=== PATIENT | male | born 1965 | race Two or more races ===

== ENCOUNTER 2025-06-12 16:43 | Emergency (ER) | payer MEDICAID, SELFPAY ==
[2025-06-12 16:44] VITALS: BMI 26.6
[2025-06-12 16:53] VITALS: BP 168/88; BP 179/89; PULSE 67; RESP 18; TEMP 36.7; O2SAT 96
--- NOTE | 2025-06-12 16:57 | EKG_ITS ---
[facility] Test Date: 2025-06-12 Pat Name: IVY BULL Department: Room: - Gender: Male Afterschool: : 1965 Requested By: Chuck Alberts Order Number: [id number] Reading MD: Chuck Alberts Measurements Intervals Parker Rate: 73 P: 55 ME: 138 QRS: 14 QRSD: 99 T: 66 QT: 397 QTc: 439 Interpretive Statements SINUS RHYTHM INDETERMINATE AXIS No previous ECG available for comparison /store/S0/[id number]
--- NOTE | 2025-06-12 16:58 | EDRME_ITS ---
Rapid Medical Screening Exam FORMERLY [facility], [facility]–1983 Arrival date/time: 06/12/25 16:43 59-year-old male with no known medical history presents to the emergency room with a chief complaint of dizziness and lightheadedness x 2 days. Patient states his dizziness is worse with certain positional changes. I have greeted and performed a focused initial assessment of this patient. A comprehensive ED assessment and evaluation of the patient, analysis of all test results, and completion of the medical decision making process will be conducted by additional ED providers. Chief Complaint: Dizziness Vital signs: Vital Signs Temperature 98.0 F 06/12/25 16:53 Pulse Rate 67 06/12/25 16:53 Respiratory Rate 18 06/12/25 16:53 Blood Pressure 168/88 H 06/12/25 16:53 Pulse Oximetry (%) 96 06/12/25 16:53 Oxygen Delivery Method Room Air 06/12/25 16:53 Vital signs reviewed by provider: Yes Exam: Patient is a GCS of 15 alert and oriented x 3 pupils are PERRLA EOMs are intact the patient has no focal deficits Lung sounds are clear bilaterally patient has a strong and regular rhythm S1 and S2 noted Clinical Impression: Vertigo/chest pain/NSTEMI/electrolyte imbalance/orthostatic hypotension
[2025-06-12] MEDS: MECLIZINE HCL 25 MG TABLET 50 MG PO (17:09)
[2025-06-12 17:45] LABS: Basophils # (Auto) 0.0 Thou/mm3 (0.0-0.2); Basophils % (Auto) 0 % (0-2.5); Eosinophils # (Auto) 0.2 Thou/mm3 (0.0-0.5); Eosinophils % (Auto) 2 % (0-10); Hematocrit 45.5 % (41.0-53.0); Hemoglobin 15.8 g/dL (13.5-16.0); Immature Granulocytes Auto 0.01 Thou/mm3 (0.00-0.00); Lymphocytes # (Auto) 3.1 Thou/mm3 (1.0-4.8); Lymphocytes % (Auto) 36 % (10-50); Mean Corpuscular HGB Conc 34.7 g/dl (31.0-37.0); Mean Corpuscular Hemoglobin 30.5 pg (25.0-35.0); Mean Corpuscular Volume 88 fL (80-100); Monocytes # (Auto) 0.6 Thou/mm3 (0.0-0.8); Monocytes % (Auto) 7 % (0-12); Neutrophils # (Auto) 4.8 Thou/mm3 (1.8-7.7); Neutrophils % (Auto) 55 % (37-80); Nucleated Red Blood Cell # 0.00 Thou/mm3 (0.00-0.00); Nucleated Red Blood Cell % 0 /100 WBC (0); Platelet Count 189 Thou/mm3 (140-440); RDW Standard Deviation 41.4 fL (35.1-43.9); Red Blood Count 5.18 Miln/mm3 (4.50-5.90); White Blood Count 8.8 Thou/mm3 (3.8-10.6)
[2025-06-12 17:51] LABS: Collection Type, Urine Clean Catch; Squamous Epithelial Cell,Urine 0 /hpf (0-5)
[2025-06-12 18:00] LABS: B-Type Natriuretic Peptide 24 pg/mL (0-100)
[2025-06-12 18:03] LABS: Bilirubin,Urine Negative (Negative); Blood,Urine Negative (Negative); Clarity,Urine Clear (Clear/Hazy); Color,Urine Yellow (Lt Yel-Yel); Glucose, Urine Negative (Negative); Ketones,Urine Trace (Negative); Leukocyte Esterase,Urine Negative (Negative); Nitrite,Urine Negative (Negative); PH,Urine 6.0 (5.0-7.0); Protein,Urine Negative (Neg - Trace); RBC,Urine 1 /hpf (0-3); Specific Gravity,Urine 1.023 (1.001-1.035); Urobilinogen,Urine Negative mg/dL (0.0-1.0); WBC,Urine 1 /hpf (0-5)
[2025-06-12 18:04] LABS: Alanine Aminotransferase 18 U/L (10-49); Albumin, Serum 5.0 gm/dL (3.4-4.8); Albumin/Globulin Ratio 2.2 (1.2-2.2); Alkaline Phosphatase 61 U/L (46-116); Anion Gap 11 (7-16); Aspartate Amino Transferase 21 U/L (0-34); BUN/Creatinine Ratio 9 Ratio (12-20); Bilirubin,Total 0.6 mg/dL (0.3-1.2); Blood Urea Nitrogen 8 mg/dL (9-23); Calcium 9.6 mg/dL (8.3-10.6); Calcium (Corrected) 9.6 mg/dL (8.5-10.1); Carbon Dioxide 23.9 mMol/L (20.0-31.0); Chloride 106 mMol/L (98-107); Creatinine (Component) 0.9 mg/dL (0.6-1.3); Estimated Creatinine Clearance 81.6 mL/min (>60); Globulin 2.3 gm/dL (2.3-3.5); Glucose 117 mg/dL (74-106); Osmolality,Calculated 280 (275-295); Potassium 4.0 mMol/L (3.4-5.1); Sodium 141 mMol/L (136-145); Total Protein 7.3 gm/dL (5.7-8.2); Troponin I < 0.020 ng/mL (0.0-0.045); eGFR > 60 See Note
[2025-06-12 21:04] VITALS: BP 171/90; PULSE 64; RESP 16; TEMP 37.1; O2SAT 96
--- NOTE | 2025-06-12 21:19 | PD.EDADULT ---
ED General RME/HPI General Chief complaint: Dizziness Stated complaint: DIZZY FOR 1 MONTH, WORSE WITH MOVING Time Seen by Provider: 06/12/25 19:30 Arrival date/time: 06/12/25 16:43 CC: Dizziness lightheadedness HPI onset several months ago but the worst episode started 4 days ago intermittent in nature sometimes the patient states the room is spinning and he is almost loses balance but denies any falls. Patient is awake alert oriented to get significant improvement from the medicine that was giving him front patient has no other complaints at this time. RME / HPI RME / HPI narrative: 06/12/25 16:43 59-year-old male with no known medical history presents to the emergency room with a chief complaint of dizziness and lightheadedness x 2 days. Patient states his dizziness is worse with certain positional changes. I have greeted and performed a focused initial assessment of this patient. A comprehensive ED assessment and evaluation of the patient, analysis of all test results, and completion of the medical decision making process will be conducted by additional ED providers. Exam: Patient is a GCS of 15 alert and oriented x 3 pupils are PERRLA EOMs are intact the patient has no focal deficits Lung sounds are clear bilaterally patient has a strong and regular rhythm S1 and S2 noted Impression: Vertigo/chest pain/NSTEMI/electrolyte imbalance/orthostatic hypotension Related Data Previous Rx's ?Medication ?Instructions ?Recorded meclizine 50 mg tablet 50 mg PO QDAY #14 tabs 06/12/25 Allergies Allergy/AdvReac Type Severity Reaction Status Date / Time No Known Allergies Allergy Verified 06/12/25 16:46 Review of Systems Review of Systems Narrative Review of Systems: GEN: No fever, no chills, no weight loss EYES: No discharge, no visual changes, no pain HEENT: No ear pain, no congestion, no sore throat PULM: No shortness of breath, no cough, no congestion CV: No chest pain, no dyspnea on exertion, no palpitations GI: No nausea, no vomiting, no diarrhea, no pain, no constipation : No frequency, no urgency, no dysuria MUSC/SKEL: No joint pain, no back pain SKIN: No rash PSYCH: No hallucinations, no depression HEME/LYMPH: No easy bleeding or bruising tendencies NEURO: No weakness, no headache Past Medical History Social History SMOKING STATUS: Current every day smoker ED Exam Narrative Physical exam: [General: Not in any acute distress Head normocephalic HEENT: Eyes pupils are PERRLA EOMs are intact no nystagmus, all other subsystems of HEENT are within acceptable limits Neck is supple nontender Chest equal chest rise nontender to palpation Respiratory: Clear to auscultation no wheezes crackles or rubs CV: Rate rhythm is regular no murmurs rubs or clicks Abdomen is soft nontender no masses positive bowel sounds all 4 quadrants Back: No CVA tenderness no spinous process tenderness from cervical spine thoracic and lumbar spine Skin: Intact no petechiae rash induration ulceration or crepitus Extremities: Moving all extremity against resistance cap refill less than 2 seconds neurosensory intact Neuro: Awake alert oriented x3 Glascow coma 15 no focal deficits] Course Quality Measures none Orders Category Date Time Status EKG (ED ONLY) *Do not use* NOW Care 06/12/25 16:57 Completed EKG (ED Only) Stat Exams 06/12/25 16:57 Draft BNP [B-Type Natriuretic Peptide] Stat Lab 06/12/25 17:20 Completed CBC Stat Lab 06/12/25 17:20 Completed Comprehensive Metabolic Panel Stat Lab 06/12/25 17:20 Completed Troponin I Stat Lab 06/12/25 17:20 Completed Urinalysis Stat Lab 06/12/25 17:25 Completed Urine Culture Stat Lab 06/12/25 17:25 Received Meclizine HCl [Antivert] Med 06/12/25 16:57 Discontinued 50 mg PO X1 ONE Vital Signs Vital signs: Vital Signs Temperature 98.0 F 06/12/25 16:53 Pulse Rate 67 06/12/25 16:53 Respiratory Rate 18 06/12/25 16:53 Blood Pressure 168/88 H 06/12/25 16:53 Pulse Oximetry (%) 96 06/12/25 16:53 Oxygen Delivery Method Room Air 06/12/25 16:53 Discharge Plan Plan Patient Disposition: HOME (Self Care) Patient condition on transfer: Stable Prescriptions/Referrals Prescriptions/Med Rec: New meclizine 50 mg tablet 50 mg PO QDAY Qty: 14 0RF Referrals: Navneet Akhtar MD [Physician, Family Practice] - In 1 week No Primary/Family,Physician [Primary Care Provider] - In 1 week Problem List Clinical Impression: Benign paroxysmal positional vertigo Patient/Caregiver Discharge Instructions Other Activity Instructions:: Take the medication as needed if the dizziness worsens in spite of the medications return the emergency room for reevaluation. Education Materials: ED Vertigo, Unspecified Print Language: Italian Stand Alone Forms: Kami Award Info., Patient Portal Info Letter, Work/School Release PA/CARD SETTER Supervising Physician PA/CARD SETTER Supervising Physician: Richar Mullins ENP MDM Clinical Information Provided by: patient Medical Records reviewed [facility] Meds/Rx considered, not ordered None Labs/Rad/Tests considered, not ordered None Chronic Illness/Social Conditions which may negatively complicate care or outcome(s)-explain: None or not applicable EKG Interpretation EKG #1: EKG Interpretation: EKG performed at 1702 shows rate of 73 NE interval 138 QRS at 99 QTc of 439 this normal sinus rhythm. Labs Labs: interpreted by id Lab(s) Interpretation(s): CBC shows no acute leukocytosis anemia thrombocytopenia CMP shows a glucose of 117 no other electrolyte imbalances renal impairment transaminitis or T. bili elevation Urine is negative for urinary tract infection. Imaging Imaging interpretation: none Medication Administration(s) none Medication Administration History Discontinued Medications Meclizine HCl (Meclizine Hcl 25 Mg Tablet) 50 mg PO X1 ONE Stop: 06/12/25 16:58 Last Admin: 06/12/25 17:09 Dose: 50 mg Documented By: THONY Diagnosis Differential Diagnosis ED Complaint MDM: Benign positional vertigo M?ni?re's syndrome somatizations
== END 2025-06-12 21:40 | disposition home or self-care (01) ==
PROVIDERS: Nurse Practitioner Family; Emergency Provider Emergency Medicine
DX: H81.10 Benign paroxysmal vertigo, unspecified ear (principal)
CPT/HCPCS: 36415; 80053; 81001; 83880; 84484; 85025; 87086; 93005; 99283; A9270

== ENCOUNTER 2025-06-15 10:39 | Emergency (ER) | payer MEDICAID, SELFPAY ==
[2025-06-15 11:04] VITALS: BP 149/93; PULSE 71; RESP 18; TEMP 36.9; O2SAT 97
--- NOTE | 2025-06-15 11:09 | XR_ITS ---
Examination: CT brain head without contrast. 2-D sagittal coronal reconstructions Date and time of exam: June 15, 2025, 1154 hours INDICATION: Generalized head pain and severe dizziness onset today CTDI: vol (mGy): 49.4 DLP: (mGycm): 916 Technique: Multiple CT axial sections of the brain have been obtained, 5 mm slice thickness. Contrast has not been administered. 2-D sagittal, coronal reconstructions have been obtained Low dose protocols were performed. One or more of the following dose reduction techniques were used; automated exposure control, adjustment of the mA and/or KV according to patient size, use of iterative reconstruction technique. Findings: No significant ventricular enlargement. Intra-axial or extra-axial hemorrhage density is not seen. No mass effect or midline shift Basal cisterns are not remarkable. Fourth ventricle is midline. Cranial vault intact. Impression: Negative for acute hemorrhage, mass effect or midline shift Advise clinical correlation and follow-up accordingly
--- NOTE | 2025-06-15 11:10 | PD.EDRME ---
Rapid Medical Screening Exam RME Arrival date/time: 06/15/25 10:39 59-year-old male presents to the emergency room today for complaints of headache and head pressure Chief Complaint: Headache Vital signs: Vital Signs Temperature 98.5 F 06/15/25 11:04 Pulse Rate 71 06/15/25 11:04 Respiratory Rate 18 06/15/25 11:04 Blood Pressure 149/93 H 06/15/25 11:04 Pulse Oximetry (%) 97 06/15/25 11:04 Oxygen Delivery Method Room Air 06/15/25 11:04 Vital signs reviewed by provider: Yes Exam: On exam patient well-appearing patient does not appear look toxic Neurological exam normal Clinical Impression: Lab work and imaging obtained
[2025-06-15 11:28] LABS: Basophils # (Auto) 0.0 Thou/mm3 (0.0-0.2); Basophils % (Auto) 1 % (0-2.5); Eosinophils # (Auto) 0.2 Thou/mm3 (0.0-0.5); Eosinophils % (Auto) 3 % (0-10); Hematocrit 44.8 % (41.0-53.0); Hemoglobin 15.7 g/dL (13.5-16.0); Immature Granulocytes Auto 0.02 Thou/mm3 (0.00-0.00); Lymphocytes # (Auto) 2.2 Thou/mm3 (1.0-4.8); Lymphocytes % (Auto) 35 % (10-50); Mean Corpuscular HGB Conc 35.0 g/dl (31.0-37.0); Mean Corpuscular Hemoglobin 30.7 pg (25.0-35.0); Mean Corpuscular Volume 88 fL (80-100); Monocytes # (Auto) 0.5 Thou/mm3 (0.0-0.8); Monocytes % (Auto) 8 % (0-12); Neutrophils # (Auto) 3.2 Thou/mm3 (1.8-7.7); Neutrophils % (Auto) 53 % (37-80); Nucleated Red Blood Cell # 0.00 Thou/mm3 (0.00-0.00); Nucleated Red Blood Cell % 0 /100 WBC (0); Platelet Count 169 Thou/mm3 (140-440); RDW Standard Deviation 41.8 fL (35.1-43.9); Red Blood Count 5.11 Miln/mm3 (4.50-5.90); White Blood Count 6.1 Thou/mm3 (3.8-10.6)
[2025-06-15 11:51] LABS: Alanine Aminotransferase 17 U/L (10-49); Albumin, Serum 4.8 gm/dL (3.4-4.8); Albumin/Globulin Ratio 2.0 (1.2-2.2); Alkaline Phosphatase 61 U/L (46-116); Anion Gap 10 (7-16); Aspartate Amino Transferase 20 U/L (0-34); BUN/Creatinine Ratio 9 Ratio (12-20); Bilirubin,Total 0.6 mg/dL (0.3-1.2); Blood Urea Nitrogen 9 mg/dL (9-23); Calcium 9.4 mg/dL (8.3-10.6); Calcium (Corrected) 9.4 mg/dL (8.5-10.1); Carbon Dioxide 26.5 mMol/L (20.0-31.0); Chloride 106 mMol/L (98-107); Creatinine (Component) 1.0 mg/dL (0.6-1.3); Globulin 2.4 gm/dL (2.3-3.5); Glucose 117 mg/dL (74-106); Osmolality,Calculated 282 (275-295); Potassium 4.0 mMol/L (3.4-5.1); Sodium 142 mMol/L (136-145); Total Protein 7.2 gm/dL (5.7-8.2); eGFR > 60 See Note
--- NOTE | 2025-06-15 12:56 | EDNOTE_ITS ---
ED Headache RME/HPI General Chief Complaint: Headache Stated Complaint: PRESSURE IN HEAD Time Seen by Provider: 06/15/25 11:29 Arrival date/time: 59-year-old male patient was brought in by family for evaluation regarding dizziness. And vertigo onset of symptoms for the last 1 month has on and off dizziness and vertigo, worse with sudden positional change severity mild. Patient also complained of posterior headache that comes and goes severity mild. Patient denies any trauma denies any fall denies any neck pain denies any fever. Patient is ambulatory. Was seen here last few days ago and was prescribed meclizine which according to the patient is not really working. RME / HPI RME / HPI Narrative: 06/15/25 10:39 59-year-old male presents to the emergency room today for complaints of headache and head pressure Exam: On exam patient well-appearing patient does not appear look toxic Neurological exam normal Impression: Lab work and imaging obtained Related Data Previous Rx's ?Medication ?Instructions ?Recorded meclizine 50 mg tablet 50 mg PO QDAY #14 tabs 06/12 scopolamine base 1 mg over 3 days 1 mg topical .q3day #10 ea 06/15/25 transdermal patch Allergies Allergy/AdvReac Type Severity Reaction Status Date / Time No Known Allergies Allergy Verified 06/15/25 10:42 Review of Systems Review of Systems Narrative Review of Systems: Review of system reviewed and within normal limits except mentioned in HPI ED Exam Narrative Physical exam: VITAL SIGNS: Reviewed. GENERAL APPEARANCE: Alert and interactive, follows commands, no acute distress, HEAD AND FACE: Non-traumatic. ENT: PERRL, pink conjunctivitis, eyelid no trauma, Mucous membrane moist., No nystagmus noted NECK: Supple, nontender, no nuchal rigidity. CHEST: No tenderness, no crepitus, no paradoxical movement, no retractions. LUNGS: Clear, well ventilated, symmetric, no rales, no wheezing, no ronchi, no stridor, good breath sounds bilaterally. HEART: Regular rate, regular rhythm, no murmur, no gallops. ABDOMEN: Soft, positive bowel sounds, nondistended, no guarding, nontender, no rebound, no masses, RECTAL: Deferred. GENITAL: Deferred. NEUROLOGICAL: Gross motor function intact sensory function intact, Appropriate for age. Negative Romberg's test MUSCULOSKELETAL: low back nontender, full range of motion. EXTREMITIES: Nontender, full range of motion. SKIN: Color pink, dry, no rash, no lacerations, no abrasions, no contusions. LYMPHATICS: Deferred. Course Quality Measures none Orders Category Date Time Status CT head/brain wo con Stat Exams 06/15/25 11:09 Completed CBC Stat Lab 06/15/25 11:14 Completed CMP [Comprehensive Metabolic Panel] Stat Lab 06/15/25 11:14 Completed Acetaminophen Tab [Tylenol ES Tab] Med 06/15/25 12:42 Discontinued 1,000 mg PO X1 ONE Meclizine HCl [Antivert] Med 06/15/25 12:42 Discontinued 50 mg PO X1 ONE Vital Signs Vital signs: Vital Signs Temperature 98.5 F 06/15/25 11:04 Pulse Rate 71 06/15/25 11:04 Respiratory Rate 18 06/15/25 11:04 Blood Pressure 149/93 H 06/15/25 11:04 Pulse Oximetry (%) 97 06/15/25 11:04 Oxygen Delivery Method Room Air 06/15/25 11:04 Headache MDM Narrative MDM Narrative:: 59-year-old male patient was brought in by family for evaluation regarding dizziness. And vertigo onset of symptoms for the last 1 month has on and off dizziness and vertigo, worse with sudden positional change severity mild. Patient also complained of posterior headache that comes and goes severity mild. Patient denies any trauma denies any fall denies any neck pain denies any fever. Patient is ambulatory. Was seen here last few days ago and was prescribed meclizine which according to the patient is not really working. CBC CMP all came back unremarkable. CT scan of the head also came back unremarkable. On reevaluation patient is ambulatory in a straight line, and he told me that there was no recurrence of dizziness in the emergency room. Prior to discharge he is not having any dizziness. Patient was advised to follow-up with PCP and for referral to a neurologist for persistent intermittent dizziness. Patient stable for discharge home since he is not having any dizziness and patient's ambulatory prior to discharge. Patient probably needs outpatient MRI. Patient appears nontoxic and hemodynamically stable .Decision to discharge the patient. The patient/family was given an opportunity to ask questions and understood their discharge instructions. Discharge instructions specifically included follow up provider and time frame, current and/or new medications and possible side effects, indications for sooner follow up or return to the emergency department, and the expected course of current diagnosis. Patient reports feeling better as well and giving evidence of significant clinical improvement, I believe patient is now a candidate for discharge. Patient data External records reviewed:: None Clinical information provided by:: patient and family Social determinants that could affect healthcare access:: none Patient has the following chronic illnesses:: None How is presenting disease/condition affected by chronic disease/condition?: no chronic disease Evaluation data The following diagnostics were reviewed and interpreted by me:: lab results and radiology exam(s) Lab and/or radiology exams considered but not ordered:: None Interpretation Summary: See results MDM Medications / Prescriptions Medications or Prescriptions considered but not ordered:: None Medication administrations:: Medication Administration History Discontinued Medications Acetaminophen (Acetaminophen 500 Mg Tablet) 1,000 mg PO X1 ONE Stop: 06/15/25 12:43 Meclizine HCl (Meclizine Hcl 25 Mg Tablet) 50 mg PO X1 ONE Stop: 06/15/25 12:43 None Consultations Consultation(s) initiated? (list below): No Diagnosis Differential diagnosis headache: tension headache and other (Paroxysmal benign vertigo) Most likely diagnosis given after review of the tests above:: Dizziness Admission Indicated Admission indicated?: not indicated Admission Request Was there a request for admission?: No Disposition Plan Disposition Plan: Discharge Discharge Attestation Discharge Attestation: The patient and all family members were given an opportunity to ask questions and understood the discharge instructions. Discharge instructions specifically effects, indications for sooner follow up or return to the emergency department, and the expected course of current diagnosis. Patient condition: Stable Discharge Plan Plan Patient Disposition: HOME (Self Care) Discharge Disposition comment: Stable Prescriptions/Referrals Prescriptions/Med Rec: New scopolamine base 1 mg over 3 days patch 3 day 1 mg topical .q3day Qty: 10 0RF No Action meclizine 50 mg tablet 50 mg PO QDAY Qty: 14 0RF Referrals: No Primary/Family,Physician [Primary Care Provider] - In 1 week Problem List Clinical Impression: Dizziness Patient/Caregiver Discharge Instructions Discharge Activity: activity as tolerated Education Materials: Vertigo Medicine Tx Additional Instructions: Thank you for the opportunity for serving you today. You are stable for discharged . You are advised to: Follow-up with your PCP in 1 to 2 days and as per referral to neurologist Return to ED for worsening of symptoms Increase oral fluids Take medication as prescribed Print Language: English Stand Alone Forms: Kami Award Info., Patient Portal Info Letter PA/BUNDLING MACHINE OPERATOR Supervising Physician PA/BUNDLING MACHINE OPERATOR Supervising Physician: MD Sheeba
== END 2025-06-15 13:13 | disposition home or self-care (01) ==
PROVIDERS: Nurse Practitioner Primary Care; Emergency Provider Emergency Medicine
DX: R42 Dizziness and giddiness (principal)
CPT/HCPCS: 36415; 70450; 80053; 85025; 99283

== ENCOUNTER 2025-06-25 06:48 | Emergency (ER) | payer MEDICAID, SELFPAY ==
[2025-06-25 06:55] VITALS: BMI 64.0
[2025-06-25 07:36] VITALS: BP 145/80; PULSE 68; RESP 19; TEMP 36.8; O2SAT 97
--- NOTE | 2025-06-25 08:21 | XR_ITS ---
EXAMINATION: PA chest single view TECHNIQUE: Upright PA chest single view Date and time: June 25, 2025, 0918 hours INDICATIONS: Severe headache and dizziness beginning 2 months ago. FINDINGS: Normal heart size Mild accentuation basilar bronchovascular markings No lobar pneumonia or pulmonary edema The Gerald structures are intact IMPRESSION: Mild basilar bronchitis pattern
[2025-06-25] MEDS: MECLIZINE HCL 25 MG TABLET 50 MG PO (08:52)
--- NOTE | 2025-06-25 08:55 | EDRME_ITS ---
Rapid Medical Screening Exam E Arrival date/time: 06/25/25 06:48 This is a 59-year-old male that comes into the emergency room with complaints of dizziness. Patient has already been seen by his primary doctor for this problem. Patient reports that he recently was told that he had a murmur and he is currently being referred to a boiler operator. Patient states he was initially taking medications to help with his dizziness but he really does not think it was actually working. Patient was actually seen in the emergency room actually at patient states that he had a workup done there. Patient states he even had a CT of his head done. Patient was told that everything looked good that his heart was doing good and that he needs to follow-up with his primary doctor. Family is concerned because he still having dizziness episodes. They are more concerned because they want his murmur to be further investigated. Patient denies chest pain shortness of breath however did state that he had chest pain the day he went to the emergency room at [facility]. Patient states the dizziness is worse when he bends down. Patient does have a history of high blood pressure. Patient reports that he was recently told that he had increased his lisinopril dose to 40 mg versus 20 mg. I have greeted and performed a focused initial assessment of this patient. Initial appropriate labs ordered at this time. A comprehensive ED assessment and evaluation of the patient and analysis of all test and completion of medical decision making process will be conducted by additional ED provider. Chief Complaint: General Adult/Misc Complain Time Seen by Provider: 06/25/25 07:27 Vital signs: Vital Signs Temperature 98.3 F 06/25/25 07:36 Pulse Rate 68 06/25/25 07:36 Respiratory Rate 19 06/25/25 07:36 Blood Pressure 145/80 H 06/25/25 07:36 Pulse Oximetry (%) 97 06/25/25 07:36 Oxygen Delivery Method Room Air 06/25/25 07:36 Exam: Alert and oriented, breathing even and unlabored Clinical Impression: Dizziness
[2025-06-25 09:17] LABS: Collection Type, Urine Voided; Squamous Epithelial Cell,Urine 0 /hpf (0-5)
[2025-06-25 09:28] LABS: Basophils # (Auto) 0.0 Thou/mm3 (0.0-0.2); Basophils % (Auto) 1 % (0-2.5); Eosinophils # (Auto) 0.1 Thou/mm3 (0.0-0.5); Eosinophils % (Auto) 1 % (0-10); Hematocrit 41.4 % (41.0-53.0); Hemoglobin 14.4 g/dL (13.5-16.0); Immature Granulocytes Auto 0.01 Thou/mm3 (0.00-0.00); Lymphocytes # (Auto) 1.3 Thou/mm3 (1.0-4.8); Lymphocytes % (Auto) 24 % (10-50); Mean Corpuscular HGB Conc 34.8 g/dl (31.0-37.0); Mean Corpuscular Hemoglobin 30.5 pg (25.0-35.0); Mean Corpuscular Volume 88 fL (80-100); Monocytes # (Auto) 0.4 Thou/mm3 (0.0-0.8); Monocytes % (Auto) 8 % (0-12); Neutrophils # (Auto) 3.6 Thou/mm3 (1.8-7.7); Neutrophils % (Auto) 66 % (37-80); Nucleated Red Blood Cell # 0.00 Thou/mm3 (0.00-0.00); Nucleated Red Blood Cell % 0 /100 WBC (0); Platelet Count 122 Thou/mm3 (140-440); RDW Standard Deviation 41.1 fL (35.1-43.9); Red Blood Count 4.72 Miln/mm3 (4.50-5.90); White Blood Count 5.5 Thou/mm3 (3.8-10.6)
[2025-06-25 09:31] LABS: Bilirubin,Urine Negative (Negative); Blood,Urine Negative (Negative); Clarity,Urine Clear (Clear/Hazy); Color,Urine Yellow (Lt Yel-Yel); Culture Indicated,Urine Not Indicated; Glucose, Urine Negative (Negative); Ketones,Urine Negative (Negative); Leukocyte Esterase,Urine Negative (Negative); Nitrite,Urine Negative (Negative); PH,Urine 5.5 (5.0-7.0); Protein,Urine Negative (Neg - Trace); RBC,Urine 1 /hpf (0-3); Specific Gravity,Urine 1.027 (1.001-1.035); Urobilinogen,Urine Negative mg/dL (0.0-1.0); WBC,Urine 1 /hpf (0-5)
[2025-06-25 09:33] LABS: Sperm,Urine Present
[2025-06-25 09:38] LABS: Amphetamine/Methamp Scrn,U Negative (Negative); Barbiturate Screen,Urine Negative (Negative); Benzodiazepines Screen,Urine Negative (Negative); Benzoylecgonine Screen, Ur Negative (Negative); Fentanyl Screen,Urine Negative (Negative); Opiate Screen,Urine Negative (Negative); THC Screen,Urine Negative (Negative)
[2025-06-25 09:44] LABS: Alanine Aminotransferase 14 U/L (10-49); Albumin, Serum 4.8 gm/dL (3.4-4.8); Albumin/Globulin Ratio 2.3 (1.2-2.2); Alkaline Phosphatase 53 U/L (46-116); Anion Gap 8 (7-16); Aspartate Amino Transferase 19 U/L (0-34); BUN/Creatinine Ratio 9 Ratio (12-20); Bilirubin,Total 0.5 mg/dL (0.3-1.2); Blood Urea Nitrogen 9 mg/dL (9-23); Calcium 9.6 mg/dL (8.3-10.6); Calcium (Corrected) 9.6 mg/dL (8.5-10.1); Carbon Dioxide 24.9 mMol/L (20.0-31.0); Chloride 108 mMol/L (98-107); Creatinine (Component) 1.0 mg/dL (0.6-1.3); Estimated Creatinine Clearance 122.5 mL/min (>60); Globulin 2.1 gm/dL (2.3-3.5); Glucose 110 mg/dL (74-106); Osmolality,Calculated 280 (275-295); Potassium 4.4 mMol/L (3.4-5.1); Sodium 141 mMol/L (136-145); Total Protein 6.9 gm/dL (5.7-8.2); Troponin I < 0.002 ng/mL (0.0-0.045); eGFR > 60 See Note
[2025-06-25 10:00] LABS: B-Type Natriuretic Peptide < 20 pg/mL (0-100)
[2025-06-25 12:07] VITALS: BP 147/87; PULSE 66; RESP 16; TEMP 37.1; O2SAT 97
--- NOTE | 2025-06-25 12:18 | PD.EDRME ---
Rapid Medical Screening Exam RME Arrival date/time: 06/25/25 06:48 06/25/25 06:48 This is a 59-year-old male that comes into the emergency room with complaints of dizziness. Patient has already been seen by his primary doctor for this problem. Patient reports that he recently was told that he had a murmur and he is currently being referred to a zinc plate cutter. Patient states he was initially taking medications to help with his dizziness but he really does not think it was actually working. Patient was actually seen in the emergency room actually at patient states that he had a workup done there. Patient states he even had a CT of his head done. Patient was told that everything looked good that his heart was doing good and that he needs to follow-up with his primary doctor. Family is concerned because he still having dizziness episodes. They are more concerned because they want his murmur to be further investigated. Patient denies chest pain shortness of breath however did state that he had chest pain the day he went to the emergency room at [facility]. Patient states the dizziness is worse when he bends down. Patient does have a history of high blood pressure. Patient reports that he was recently told that he had increased his lisinopril dose to 40 mg versus 20 mg. I have greeted and performed a focused initial assessment of this patient. Initial appropriate labs ordered at this time. A comprehensive ED assessment and evaluation of the patient and analysis of all test and completion of medical decision making process will be conducted by additional ED provider. Chief Complaint: General Adult/Misc Complain Time Seen by Provider: 06/25/25 07:27 Vital signs: Vital Signs Temperature 98.3 F 06/25/25 07:36 Pulse Rate 68 06/25/25 07:36 Respiratory Rate 19 06/25/25 07:36 Blood Pressure 145/80 H 06/25/25 07:36 Pulse Oximetry (%) 97 06/25/25 07:36 Oxygen Delivery Method Room Air 06/25/25 07:36 RME Narrative: 06/25/25 06:48 This is a 59-year-old male that comes into the emergency room with complaints of dizziness. Patient has already been seen by his primary doctor for this problem. Patient reports that he recently was told that he had a murmur and he is currently being referred to a zinc plate cutter. Patient states he was initially taking medications to help with his dizziness but he really does not think it was actually working. Patient was actually seen in the emergency room actually at patient states that he had a workup done there. Patient states he even had a CT of his head done. Patient was told that everything looked good that his heart was doing good and that he needs to follow-up with his primary doctor. Family is concerned because he still having dizziness episodes. They are more concerned because they want his murmur to be further investigated. Patient denies chest pain shortness of breath however did state that he had chest pain the day he went to the emergency room at [facility]. Patient states the dizziness is worse when he bends down. Patient does have a history of high blood pressure. Patient reports that he was recently told that he had increased his lisinopril dose to 40 mg versus 20 mg. I have greeted and performed a focused initial assessment of this patient. Initial appropriate labs ordered at this time. A comprehensive ED assessment and evaluation of the patient and analysis of all test and completion of medical decision making process will be conducted by additional ED provider. Exam: Alert and oriented, breathing even and unlabored Clinical Impression: Dizziness
--- NOTE | 2025-06-25 13:16 | EDNOTE_ITS ---
<Statement entered by Chanelle Beatty MD - 06/25/25 16:34> I, Chanelle Beatty MD, have reviewed the history, exam, and assessment of the patient. I have evaluated the patient independently and agree with the plan of care documented by [ ]. All diagnostic studies were reviewed and discussed. I confirm the diagnosis as documented by the Resident. I was present during the Medical Decision Making for this patient. The patient's plan of care was created between myself and the Resident and consistent with our discussion of the patient's case. ED Headache RME/HPI General Chief Complaint: General Adult/Misc Complain Stated Complaint: HEAD PRESSURE FEELS FAINT Time Seen by Provider: 06/25/25 07:27 Arrival date/time: 06/25/25 06:48 RME / HPI RME / HPI Narrative: 06/25/25 06:48 Patient is a 59-year-old male with a past medical history of hypertension who presented to the emergency room via private vehicle with a chief of headache originating at the occipital region. Patient denied blurry vision. Denied [place] or vomiting. Associated symptom of dizziness with heads that are positional when bending over and laying down. Patient denied motor weakness or loss of sensation. Denied shortness of breath. Denied Chest Pain. Denied loss of consiouness Recent visit on 06/16/2025 to [facility]. CBC CMP troponin and EKG Please return on 06/26/2025 for brain MRI to ER. Impression: Dizziness Related Data Previous Rx's ?Medication ?Instructions ?Recorded meclizine 50 mg tablet 50 mg PO QDAY #14 tabs 06/12 scopolamine base 1 mg over 3 days 1 mg topical .q3day #10 ea 06/15/25 transdermal patch ibuprofen 400 mg tablet 400 mg PO BID Headache 7 da ys #14 06/25/25 tabs Allergies Allergy/AdvReac Type Severity Reaction Status Date / Time No Known Allergies Allergy Verified 06/25/25 07:07 Review of Systems Review of Systems Narrative Review of Systems: General appearance: NO weight change, NO fatigue, NO weakness, NO fever, NO chills, NO night sweats, No cough, yes Dizziness Skin: NO rash, NO itching, NO sores, NO moles HEENT: NO Trauma, NO nausea, NO vomiting, NO visual changes, NO blurry vision, NO double vision, NO tinnitus, NO vertigo, NO ear discharge, NO rhinorrhea, NO stuffiness, NO sneezing, NO allergy, NO epistaxis. NO Hoarseness, NO sore throat, NO swollen neck. Cardiac: NO Palpitations, NO dyspnea on exertion, NO orthopnea, NO paroxysmal nocturnal dyspnea, NO edema Respiratory: NO Shortness of Breath, NO Wheezing, NO Cough, NO Sputum, NO hemoptysis GI:NO appetite, NO nausea, NO vomiting, NO dysphagia, NO changes in bowel frequency, NO stool color, NO diarrhea, NO constipation, NO hemetemesis, NO hemorrhoids, NO melena, NO hematechezia, NO abdominal pain, NO jaundice Renal: NO frequency, NO hesitancy, NO urgency, NO hematuria, NO nocturia, NO incontinence MSK: NO muscle weakness, NO gout, NO arthritis, NO muscle stiffness Neuro: NO headaches, NO tremors, NO weakness, NO paralysis, NO seizures, NO loss of consciousness, NO numbness. Hem: NO anemia, NO easy bruising/bleeding, NO petechiae, NO purpura Endo: NO heat/cold intolerance, NO excessive sweating, NO polyuria, NO polydipsia, NO polyphagia, NO thyroid problems, NO diabetes Pysch: NO mood, NO anxiety, NO depression ED Exam Narrative Physical exam: General Appearance: Alert & Oriented X3, well-nourished male who is lying in bed in no acute distress HEENT: Skull symmetrical and atraumatic. Conjunctivae pink and moist. Pupils equal, round, reactive to light and accommodation (PERRL). External ear without lesion or discharge. Straight, nares patient, mucosa pink, no discharge. Cardio: Normal Rate and Rhythm with S1 and S2 heart sounds. Holosystolic murmur. No bruits on carotid auscultation or abdominal auscultation. No peripheral edema or cyanosis. Lungs: Symmetric with good expansion. Chest and back non-tender. Breath sounds vesicular without crackles, wheezing or rhonchi Abdomen: Non-tender, Non-distended, Normal Reactive Bowel Sounds Neuro: Alert, cooperative, oriented to person, place, and time. Speech clear. CN grossly intact. Upper motor strength 5/5 and Lower motor strength 5/5. Sensation intact. Course Course Course Narrative: CBC no anemia w/ hgb of 14.[address] elevation noted and no troponin elevation UA negative Utoxi negative Quality Measures none Orders Category Date Time Status EKG (ED ONLY) *Do not use* NOW Care 06/25/25 08:21 Completed MRI Screening NOW Care 06/25/25 14:02 Active EKG (ED Only) Stat Exams 06/25/25 08:21 Ordered MR head/brain wo/w con Routine Exams 06/26/25 06:00 Ordered XR chest 1V Stat Exams 06/25/25 08:21 Completed BNP [B-Type Natriuretic Peptide] Stat Lab 06/25/25 08:36 Completed CBC [CBC] Stat Lab 06/25/25 08:36 Completed Comprehensive Metabolic Panel Stat Lab 06/25/25 08:36 Completed Drug Screen,Urine Stat Lab 06/25/25 08:44 Completed Troponin I Stat Lab 06/25/25 08:36 Completed Urinalysis, C/S if Indicated Stat Lab 06/25/25 08:39 Completed Ketorolac Inj [Toradol Inj] Med 06/25/25 12:25 Discontinued 30 mg IM X1 ONE Meclizine HCl [Antivert] Med 06/25/25 08:21 Discontinued 50 mg PO X1 ONE Vital Signs Vital signs: Vital Signs Temperature 98.3 F 06/25/25 07:36 Pulse Rate 68 06/25/25 07:36 Respiratory Rate 19 06/25/25 07:36 Blood Pressure 145/80 H 06/25/25 07:36 Pulse Oximetry (%) 97 06/25/25 07:36 Oxygen Delivery Method Room Air 06/25/25 07:36 Headache Patient data External records reviewed:: [facility] previous records Clinical information provided by:: patient Social determinants that could affect healthcare access:: none Patient has the following chronic illnesses:: HTN How is presenting disease/condition affected by chronic disease/condition?: uneffected by (uneffected by HTN ) Evaluation data The following diagnostics were reviewed and interpreted by me:: lab results, radiology exam(s) and EKG tracing(s) Lab and/or radiology exams considered but not ordered:: None Interpretation Summary: Patient is presenting with recurrent history of headaches regiment disability region with unremarkable labs including CBC CMP and negative EKG. Chest x-ray negative UA negative and UTOX negative Medications / Prescriptions Medications or Prescriptions considered but not ordered:: none Medication administrations:: Medication Administration History Discontinued Medications Ketorolac Tromethamine (Ketorolac Inj 30 Mg/Ml Vial) 30 mg IM X1 ONE Stop: 06/25/25 12:26 Last Admin: 06/25/25 13:13 Dose: Not Given Documented By: THONY Non-Admin Reason: Patient Refused Comments: pt denies pain at this time Meclizine HCl (Meclizine Hcl 25 Mg Tablet) 50 mg PO X1 ONE Stop: 06/25/25 08:22 Last Admin: 06/25/25 08:52 Dose: 50 mg Documented By: MAXIMO same as above Consultations Consultation(s) initiated? (list below): No Diagnosis Differential diagnosis headache: migraine, tension headache and sinusitis Most likely diagnosis given after review of the tests above:: Likely diagnosis of tension headache given negative labs and negative EKG and negative troponin. Chest x-ray negative, no respiratory symptoms. Negative Utox. - The patient's plan was discussed with attending Dr. Rogerio Taylor MD PGY2 Internal Medicine Admission Indicated Admission indicated?: not indicated Admission Request Was there a request for admission?: No Disposition Plan Disposition Plan: Discharge Discharge Attestation Discharge Attestation: The patient and all family members were given an opportunity to ask questions and understood the discharge instructions. Discharge instructions specifically effects, indications for sooner follow up or return to the emergency department, and the expected course of current diagnosis. Patient condition: Stable Discharge Plan Plan Patient Disposition: Admit Acute Care w/in Hospital Patient condition on transfer: Stable Health Concerns: Instructions: -Please take ibuprofen 400 mg oral tablet twice daily as needed for head. -Please return on 06/26/2025 for brain MRI to ER. -Continue all other medication --Please follow up with your primary care provider within one week of discharge -If your symptoms worsen,please seek immediate medical attention and return to your nearest emergency room -If you do not have a primary care provider, you may follow up at the [facility] at [address], [place] [address], Prescriptions/Referrals Prescriptions/Med Rec: New ibuprofen 400 mg tablet 400 mg PO BID 7 Days Qty: 14 0RF Continued meclizine 50 mg tablet 50 mg PO QDAY Qty: 14 0RF scopolamine base 1 mg over 3 days patch 3 day 1 mg topical .q3day Qty: 10 0RF Referrals: Jamaal Carrion MD [Primary Care Provider] - In 1 week Problem List Clinical Impression: Headache Patient/Caregiver Discharge Instructions Print Language: Indonesian Stand Alone Forms: Kami Award Info., Patient Portal Info Letter
== END 2025-06-25 14:31 | disposition home or self-care (01) ==
PROVIDERS: Nurse Practitioner Family; Emergency Provider Emergency Medicine; PCP Student in an Organized Health Care Education/Training Program
DX: R51.9 Headache, unspecified (principal); I10 Essential (primary) hypertension
CPT/HCPCS: 36415; 71045; 80053; 80307; 81001; 83880; 84484; 85025; 93005; 99283; A9270

== ENCOUNTER 2025-06-26 06:22 | Emergency (ER) | payer MEDICAID, SELFPAY ==
--- NOTE | 2025-06-26 | XR_ITS ---
Examination: MRI brain without intravenous contrast. Date and time of exam: June 26, 2025, 0943 hours INDICATIONS: Severe headaches and dizziness beginning 3 days ago Technique: Multiple axial and sagittal images of the brain obtained. Siemens high-resolution 1.5 Malathi short bore scanners utilized. Sagittal sections, T1-weighted, TR 500, TE 14, are performed. Axial sections proton-density and T2-weighted have been obtained. Inversion recovery axial images, TR 9, 260, TE 111, TI 2500. Diffusion weighted images, axial sections, TR 4800, TE 128, B value 1000 Axial sections, ADC map, TR 4800, TE 128 Findings: Enlargement of the sella turcica is not present. The optic chiasm and infundibular are not remarkable. Prepontine and interpeduncular cisterns are not enlarged. There is no localized enlargement of the medulla or rom. Fourth ventricle and cerebellar tonsils appear normal in position. No subacute area of hemorrhage density is seen. Mass in the cerebellopontine angle region is not evident. Globes symmetrical. Orbital musculature including medial lateral rectus muscles do not exhibit abnormality. Diffusion-weighted images demonstrate no focus of restricted diffusion. Increased white matter signal scattered punctate foci increased signal in the white matter 9 mm choroid plexus polypoid area Mass effect upon the ventricular system is not identified. Impression: Negative for acute hemorrhage mass effect or midline shift Scattered punctate foci of increased signal in the white matter, consider accelerated chronic microvascular white matter change, demyelinating disease, clinical correlation advised 9 mm nodule which is in the left lateral ventricle, recommend this patient return for elective MRI brain postcontrast to exclude early choroid plexus tumor
[2025-06-26 06:23] VITALS: BMI 27.4
[2025-06-26 06:24] VITALS: BP 148/84; PULSE 66; RESP 19; TEMP 36.9; O2SAT 97; BMI 27.4
--- NOTE | 2025-06-26 06:32 | EKG_ITS ---
[facility] Test Date: 2025-06-26 Pat Name: IVY BULL Department: Room: - Gender: Male Creative Assistant: : 1965 Requested By: Chuck Alberts Order Number: [id number] Reading MD: Chuck Alberts Measurements Intervals [place] Rate: 70 P: 58 W[place]: 134 QRS: 33 QRSD: 99 T: 67 QT: 372 QTc: 403 Interpretive Statements SINUS RHYTHM Compared to ECG 06/12/2025 17:02:22 Indeterminate axis no longer present /store/S0/[id number].pdf
--- NOTE | 2025-06-26 06:36 | EDRME_ITS ---
Rapid Medical Screening Exam FOR[facility]LY [facility], [facility] Arrival date/time: 06/26/25 06:22 59-year-old male with no known medical history presents to the emergency room with a chief complaint of an 8 out of 10 headache, dizziness x 3 days. Patient was seen here in the emergency room recently and was told to return to the emergency room for an MRI of his brain. I have greeted and performed a focused initial assessment of this patient. A comprehensive ED assessment and evaluation of the patient, analysis of all test results, and completion of the medical decision making process will be conducted by additional ED providers. Chief Complaint: General Adult/Misc Complain Time Seen by Provider: 06/26/25 06:24 Vital signs: Vital Signs Temperature 98.4 F 06/26/25 06:24 Pulse Rate 66 06/26/25 06:24 Respiratory Rate 19 06/26/25 06:24 Blood Pressure 148/84 H 06/26/25 06:24 Pulse Oximetry (%) 97 06/26/25 06:24 Oxygen Delivery Method Room Air 06/26/25 06:24 Vital signs reviewed by provider: Yes Exam: Patient is a GCS of 15, he is alert and oriented x 3, pupils are PERRLA EOMs are intact The patient has a strong and regular rhythm S1 and S2 noted The patient has clear bilateral lung sounds Clinical Impression: Dizziness/vertigo/
--- NOTE | 2025-06-26 06:48 | XR_ITS ---
Examination: CTA carotids with intravenous contrast CTA brain, head with intravenous contrast. 2-D sagittal, coronal reconstructions. 3-D reconstructions. Exam date and time: June 26, 2025, 0849 hours INDICATIONS: Headaches and dizziness today CTDI: vol (mGy) 29.9 DLP: (mGycm) 490 Technique: Multiple CTA axial brain, head carotid images post intravenous contrast injection 75 cc, Isovue-370. 2-D sagittal, coronal reconstructions. 3-D reconstructions, 3-D post processing including vascular maximum intensity projection images. Low dose protocols were performed. One or more of the following dose reduction techniques were used; automated exposure control, adjustment of the mA and/or KV according to patient size, use of iterative reconstruction technique. Findings: No significant common carotid carotid bifurcation or internal carotid artery stenoses Dominant left vertebral artery in the neck no critical stenoses Intracranial vertebral arteries basilar artery posterior cerebral branches fill with no large vessel occlusions Juxtasellar internal carotid arteries M1 segments middle cerebral artery trifurcation vessels anterior cerebral arteries fill with no large vessel occlusions IMPRESSION: No significant neck arterial stenoses No cerebral large vessel arterial occlusions or thrombus
[2025-06-26 07:13] LABS: Basophils # (Auto) 0.0 Thou/mm3 (0.0-0.2); Basophils % (Auto) 0 % (0-2.5); Eosinophils # (Auto) 0.2 Thou/mm3 (0.0-0.5); Eosinophils % (Auto) 3 % (0-10); Hematocrit 42.9 % (41.0-53.0); Hemoglobin 15.2 g/dL (13.5-16.0); Immature Granulocytes Auto 0.01 Thou/mm3 (0.00-0.00); Lymphocytes # (Auto) 2.0 Thou/mm3 (1.0-4.8); Lymphocytes % (Auto) 35 % (10-50); Mean Corpuscular HGB Conc 35.4 g/dl (31.0-37.0); Mean Corpuscular Hemoglobin 31.0 pg (25.0-35.0); Mean Corpuscular Volume 88 fL (80-100); Monocytes # (Auto) 0.5 Thou/mm3 (0.0-0.8); Monocytes % (Auto) 9 % (0-12); Neutrophils # (Auto) 2.9 Thou/mm3 (1.8-7.7); Neutrophils % (Auto) 52 % (37-80); Nucleated Red Blood Cell # 0.00 Thou/mm3 (0.00-0.00); Nucleated Red Blood Cell % 0 /100 WBC (0); Platelet Count 169 Thou/mm3 (140-440); RDW Standard Deviation 41.0 fL (35.1-43.9); Red Blood Count 4.90 Miln/mm3 (4.50-5.90); White Blood Count 5.6 Thou/mm3 (3.8-10.6)
[2025-06-26 07:25] LABS: Collection Type, Urine Clean Catch; Squamous Epithelial Cell,Urine 0 /hpf (0-5)
[2025-06-26 07:28] LABS: INR 1.0 (0.9-1.3); Partial Thromboplastin Time 38.6 Seconds (22.0-36.0); Prothrombin Time 11.1 Seconds (9.0-12.2)
[2025-06-26 07:32] LABS: Bilirubin,Urine Negative (Negative); Blood,Urine Negative (Negative); Clarity,Urine Clear (Clear/Hazy); Color,Urine Yellow (Lt Yel-Yel); Glucose, Urine Negative (Negative); Ketones,Urine Negative (Negative); Leukocyte Esterase,Urine Negative (Negative); Nitrite,Urine Negative (Negative); PH,Urine 5.5 (5.0-7.0); Protein,Urine Negative (Neg - Trace); RBC,Urine 1 /hpf (0-3); Specific Gravity,Urine 1.025 (1.001-1.035); Urobilinogen,Urine Negative mg/dL (0.0-1.0); WBC,Urine < 1 /hpf (0-5)
[2025-06-26 07:33] LABS: Alanine Aminotransferase 15 U/L (10-49); Albumin, Serum 5.0 gm/dL (3.4-4.8); Albumin/Globulin Ratio 2.5 (1.2-2.2); Alkaline Phosphatase 56 U/L (46-116); Anion Gap 8 (7-16); Aspartate Amino Transferase 17 U/L (0-34); BUN/Creatinine Ratio 12 Ratio (12-20); Bilirubin,Total 0.7 mg/dL (0.3-1.2); Blood Urea Nitrogen 11 mg/dL (9-23); Calcium 9.4 mg/dL (8.3-10.6); Calcium (Corrected) 9.4 mg/dL (8.5-10.1); Carbon Dioxide 26.4 mMol/L (20.0-31.0); Chloride 108 mMol/L (98-107); Creatinine (Component) 0.9 mg/dL (0.6-1.3); Estimated Creatinine Clearance 85.3 mL/min (>60); Globulin 2.0 gm/dL (2.3-3.5); Glucose 115 mg/dL (74-106); Osmolality,Calculated 283 (275-295); Potassium 4.1 mMol/L (3.4-5.1); Sodium 142 mMol/L (136-145); Total Protein 7.0 gm/dL (5.7-8.2); Troponin I < 0.020 ng/mL (0.0-0.045); eGFR > 60 See Note
[2025-06-26 07:36] LABS: B-Type Natriuretic Peptide < 20 pg/mL (0-100)
[2025-06-26 07:46] VITALS: BP 115/83; PULSE 60; RESP 17; TEMP 37.1; O2SAT 99
--- NOTE | 2025-06-26 08:20 | PC.NURSE ---
Pt. here from home to room 11, pt.'s is bedside. Pt. states he has had dizziness X 1 month, pt. states now he feels pressure in his head, towards the back of his head. 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 No s/s of distress noted at this time.
[2025-06-26 10:44] VITALS: BP 132/76; PULSE 61; RESP 17; TEMP 36.6
--- NOTE | 2025-06-26 12:07 | PD.EDADULT ---
ED General RME/HPI General Chief complaint: General Adult/Misc Complain Stated complaint: RECHECK here for MRI Time Seen by Provider: 06/26/25 06:24 Arrival date/time: 06/26/25 06:22 RME / HPI RME / HPI narrative: 06/26/25 06:22 59-year-old male with no known medical history presents to the emergency room with a chief complaint of an 8 out of 10 headache, dizziness x 3 days. Patient was seen here in the emergency room recently and was told to return to the emergency room for an MRI of his brain. I have greeted and performed a focused initial assessment of this patient. A comprehensive ED assessment and evaluation of the patient, analysis of all test results, and completion of the medical decision making process will be conducted by additional ED providers. DR. BEATTY MAIN ED EVALUATION 59 year old male with history of hypertension presents to the ED for MRI today. Reports he was evaluated here yesterday for a severe headache beginning 3 days ago. Reports the headache is present today and unchanged from yesterday. No new symptoms or complaints. No modifying factors at home. Exam: Patient is a GCS of 15, he is alert and oriented x 3, pupils are PERRLA EOMs are intact The patient has a strong and regular rhythm S1 and S2 noted The patient has clear bilateral lung sounds Impression: Dizziness/vertigo/ Related Data Previous Rx's ?Medication ?Instructions ?Recorded meclizine 50 mg tablet 50 mg PO QDAY #14 tabs 06/12/25 scopolamine base 1 mg over 3 days 1 mg topical .q3day #10 ea 06/15/25 transdermal patch ibuprofen 400 mg tablet 400 mg PO BID Headache 7 days #14 06/25/25 tabs Allergies Allergy/AdvReac Type Severity Reaction Status Date / Time No Known Allergies Allergy Verified 06/26/25 06:28 Review of Systems Review of Systems Systems Reviewed: All systems reviewed, normal except as documented Past Medical History Past Medical History CARDIAC: Positive Cardiac Disorders Social History SMOKING STATUS: Never smoker ED Exam Narrative Physical exam: GENERAL APPEARANCE: alert and oriented x 4, well-developed, well-nourished HEENT: Normocephalic, atraumatic; pupils equal, round, reactive to light; EOMI; mucous membranes pink, moist; oropharynx clear NECK: Supple LUNGS: CTABL; no wheezes, no rales, no rhonchi HEART: Regular rate, regular rhythm; normal S1, S2; no murmurs ABDOMEN: non distended; normal BS; soft, no tenderness, no guarding, no rebound; no masses, no organomegaly, no hernia EXTREMITIES: atraumatic; no edema NEUROLOGIC: awake; alert and oriented x4; cranial nerves II-XII grossly intact; no focal sensory or motor deficits PSYCHIATRIC: appropriate mood and affect SKIN: warm, dry, normal color; no rashes Course Course Course Narrative: 1152: Patients symptoms have improved. We reviewed all the results, analysis, and treatment plans. Patient is amenable to discharge. Strict return precautions were outlined. Quality Measures none Orders Category Date Time Status CT Screening NOW Care 06/26/25 06:48 Active EKG (ED ONLY) *Do not use* NOW Care 06/26/25 06:33 Completed MRI Screening NOW Care 06/26/25 06:[address] angio carotid w head w Stat Exams 06/26/25 06:48 Completed EKG (ED Only) Stat Exams 06/26/25 06:32 Ordered MR head/brain wo con Stat Exams 06/26/25 Completed BNP [B-Type Natriuretic Peptide] Stat Lab 06/26/25 06:46 Completed CBC Stat Lab 06/26/25 06:46 Completed CMP [Comprehensive Metabolic Panel] Stat Lab 06/26/25 06:46 Completed PT [Prothrombin Time with INR] Stat Lab 06/26/25 06:46 Completed PTT [Partial Thromboplastin Time] Stat Lab 06/26/25 06:46 Completed Troponin I Stat Lab 06/26/25 06:46 Completed UA [Urinalysis] Stat Lab 06/26/25 07:00 Completed Vital Signs Vital signs: Vital Signs Temperature 98.4 F 06/26/25 06:24 Pulse Rate 66 06/26/25 06:24 Respiratory Rate 19 06/26/25 06:24 Blood Pressure 148/84 H 06/26/25 06:24 Pulse Oximetry (%) 97 06/26/25 06:24 Oxygen Delivery Method Room Air 06/26/25 06:24 Pulse ox is 97% on room air which is adequate. Discharge Plan Plan Patient Disposition: HOME (Self Care) Prescriptions/Referrals Prescriptions/Med Rec: No Action meclizine 50 mg tablet 50 mg PO QDAY Qty: 14 0RF scopolamine base 1 mg over 3 days patch 3 day 1 mg topical .q3day Qty: 10 0RF ibuprofen 400 mg tablet 400 mg PO BID 7 Days Qty: 14 0RF Referrals: Jamaal Carrion MD [Primary Care Provider, Medical] - In 1 week Problem List Clinical Impression: Dizziness Patient/Caregiver Discharge Instructions Education Materials: ED Dizziness, Uncertain Cause Print Language: Anguillan Stand Alone Forms: Kami Award Info., Patient Portal Info Letter MDM Narrative MDM hospital course (for use when minimal MDM required): Prema Galvez am scribing for and in the presence of Dr. Beatty. Clinical Information Provided by: patient Medical Records reviewed [facility] Medical Records additional comments: I reviewed ED visit from yesterday 06/25. Patient was evaluated here for headache and advised to return today for MRI. Meds/Rx considered, not ordered None Labs/Rad/Tests considered, not ordered None Chronic Illness/Social Conditions which may negatively complicate care or outcome(s)-explain: None or not applicable EKG EKG not done Labs Labs: interpreted by me Lab(s) Interpretation(s): CBC is unremarkable CMP is unremarkable Urinalysis is unremarkable Imaging Imaging Interpretation(s): Ordering Physician: Chuck Magallanes Date of Service: 06/26/25 Procedure(s): MR head/brain wo con Accession Number(s): [id number] cc: Chuck Magallanes; Jamaal Dominguez; Denzel Nickerson MD~ Examination: MRI brain without intravenous contrast. Date and time of exam: June 26, 2025, 0943 hours INDICATIONS: Severe headaches and dizziness beginning 3 days ago Technique: Multiple axial and sagittal images of the brain obtained. Siemens high-resolution 1.5 Malathi short bore scanners utilized. Sagittal sections, T1-weighted, TR 500, TE 14, are performed. Axial sections proton-density and T2-weighted have been obtained. Inversion recovery axial images, TR 9, 260, TE 111, TI 2500. Diffusion weighted images, axial sections, TR 4800, TE 128, B value 1000 Axial sections, ADC map, TR 4800, TE 128 Findings: Enlargement of the sella turcica is not present. The optic chiasm and infundibular are not remarkable. Prepontine and interpeduncular cisterns are not enlarged. There is no localized enlargement of the medulla or rom. Fourth ventricle and cerebellar tonsils appear normal in position. No subacute area of hemorrhage density is seen. Mass in the cerebellopontine angle region is not evident. Globes symmetrical. Orbital musculature including medial lateral rectus muscles do not exhibit abnormality. Diffusion-weighted images demonstrate no focus of restricted diffusion. Increased white matter signal scattered punctate foci increased signal in the white matter 9 mm choroid plexus polypoid area Mass effect upon the ventricular system is not identified. Impression: Negative for acute hemorrhage mass effect or midline shift Scattered punctate foci of increased signal in the white matter, consider accelerated chronic microvascular white matter change, demyelinating disease, clinical correlation advised 9 mm nodule which is in the left lateral ventricle, recommend this patient return for elective MRI brain postcontrast to exclude early choroid plexus tumor Dictated By: Denzel Nickerson MD Signed By: <Electronically signed by Denzel Nickerson MD in OV> 06/26/25 1010 Ordering Physician: Chanelle Beatty MD Date of Service: 06/26/25 Procedure(s): CT angio carotid w head w Accession Number(s): [id number] cc: Jamaal Dominguez; Denzel Nickerson MD; Chanelle Beatty MD~ Examination: CTA carotids with intravenous contrast CTA brain, head with intravenous contrast. 2-D sagittal, coronal reconstructions. 3-D reconstructions. Exam date and time: June 26, 2025, 0849 hours INDICATIONS: Headaches and dizziness today CTDI: vol (mGy) 29.9 DLP: (mGycm) 490 Technique: Multiple CTA axial brain, head carotid images post intravenous contrast injection 75 cc, Isovue-370. 2-D sagittal, coronal reconstructions. 3-D reconstructions, 3-D post processing including vascular maximum intensity projection images. Low dose protocols were performed. One or more of the following dose reduction techniques were used; automated exposure control, adjustment of the mA and/or KV according to patient size, use of iterative reconstruction technique. Findings: No significant common carotid carotid bifurcation or internal carotid artery stenoses Dominant left vertebral artery in the neck no critical stenoses Intracranial vertebral arteries basilar artery posterior cerebral branches fill with no large vessel occlusions Juxtasellar internal carotid arteries M1 segments middle cerebral artery trifurcation vessels anterior cerebral arteries fill with no large vessel occlusions IMPRESSION: No significant neck arterial stenoses No cerebral large vessel arterial occlusions or thrombus Dictated By: Denzel Nickerson MD Signed By: <Electronically signed by Denzel Nickerson MD in OV> 06/26/25 1030 Medication Administration(s) None Diagnosis Diagnoses ruled out and/or further discussions: Dizziness
[2025-06-26 12:10] VITALS: BP 118/78; PULSE 60; RESP 16; TEMP 36.6; O2SAT 98
== END 2025-06-26 12:12 | disposition home or self-care (01) ==
PROVIDERS: Nurse Practitioner Family; Emergency Provider Emergency Medicine; PCP Student in an Organized Health Care Education/Training Program
DX: R51.9 Headache, unspecified (principal); R42 Dizziness and giddiness; I10 Essential (primary) hypertension
CPT/HCPCS: 36415; 70496; 70498; 70551; 80053; 81001; 83880; 84484; 85025; 85610; 85730; 93005; 99283; A4649; Q9967